=== PATIENT | female | born 2000 | race Caucasian/White ===

== ENCOUNTER → 2024-03-12 10:59 | Outpatient (REF) | payer BC, SELFPAY | LOC: CLAB 10:59 | PROVIDERS: ATTENDING PHYSICIAN Obstetrics & Gynecology Gynecology | DX: Z01.419 Encounter for gynecological examination (general) (routine) without abnormal findings (principal); Z11.3 Encounter for screening for infections with a predominantly sexual mode of transmission | CPT/HCPCS: 87491; 87591; G0123 ==

== ENCOUNTER 2024-07-28 05:27 | Emergency (ER) | payer SELFPAY ==
[2024-07-28 05:30] VITALS: BP 115/80
--- NOTE | 2024-07-28 06:25 | ED.GENMED ---
History of Present Illness
General
Chief Complaint: Blood and Body Fluid Exposure
Time Seen by Provider: 07/28/24 06:03
History of Present Illness
History of Present Illness:
24-year-old female no past medical history presenting status post needle stick injury. 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 Pt states the wound
bled and quickly resolved. Pt denies any complaints. tetanus unknown
Phy Exam
Physical Exam
Physical Exam:
General: Alert, no acute distress
Head: NCAT
Eyes: clear conjunctiva
Neck: supple
Cardiac: regular rate and rhythm, no murmur
Lungs: clear to auscultation bilaterally. No wheezes, rales, or rhonchi. Speaking full unlabored sentences. No respiratory distress.
Extremities: no wound to right thumb with no surrounding erythema, ecchymosis, or edema. no tenderness to palpation
Skin: warm, dry
Course
Orders/Labs/Results
Orders:
Orders
07/28/24 06:24
Pt has had a significant HIV exposure? Routine
HIV Exposure is significant?: No
07/28/24 06:25
Tetanus/Diphth/Acelpertussis [Adacel] 0.5 ml IM .ONCE ONE
07/28/24 06:40
HIV Combo Urgent
Hepatitis B Surface Antibody Urgent
Hepatitis B Surface Antigen Urgent
Hepatitis C Antibody Urgent
Vital Signs
Initial and Last Documented VS:
Initial Vital Signs
Temp Pulse Resp BP Pulse Ox
98.1 F 84 18 115/80 96
07/28/24 05:30 07/28/24 05:30 07/28/24 05:30 07/28/24 05:30 07/28/24 05:30
Last Documented Vital Signs
Temp Pulse Resp BP Pulse Ox
98.1 F 84 18 115/80 96
07/28/24 05:30 07/28/24 05:30 07/28/24 05:30 07/28/24 05:30 07/28/24 05:30
MDM/Problems Addressed
MDM/Problems Addressed:
24yoF presenting after needle stick injury to right thumb with a butterfly needle. Tetanus unknown. Will update tetanus. Offered prophylactic treatment. Pt states pt is low risk pt and declines prophylactic treatment at this time. Pt agreeable to
sending hepatitis/hiv. Recommended to follow up with occupational med/PCP. pt expressed verbal understanding
*Critical Care Note
Total Time (30-74mins, 75-104mins- exclusive of procedures): Not Applicable
ED Attending Note
-
Portions of this chart may have been created with voice recognition software.� Occasional wrong word or��sound alike� substitutions may have occurred due to the inherent limitations of voice recognition software.
Discharge Plan
Departure
Patient Disposition: Home (Routine Discharge)
Date of Disposition: 07/28/24
Time of Disposition: 06:29
Patient with high blood pressure during this ER visit?: No
Discharge Problem:
Needle stick injury of finger
Instructions: Blood or body fluid exposure
Prescriptions:
No Action
ondansetron 4 MG tablet,disintegrating
4 mg PO TIDPRN PRN (Reason: nausea/vomiting) Qty: 14 0RF
Referrals:
Marvin Multani DO [Family Provider] -
Stand Alone Forms: Bl/Fluid Consent/Declination, Blood Body/Fluid Exposure
Activity Restrictions/Additional Instructions:
Follow up with primary care doctor/occupational health
Return to the emergency department for new/worsening concerns
Interventions
Interventions:
*Risk Screen - Suicide Last Done: 07/28/24 05:32
*General Assessment Last Done: 07/28/24 05:41
*Neglect/Abuse Screening Last Done: 07/28/24 05:32
ED- Fall Risk Assessment Last Done: 07/28/24 06:44
*ED COVID-19 Vaccine History Last Done: 07/28/24 05:41
*Nursing Disposition Last Done: 07/28/24 06:44
ED-EENT Assessment Last Done: 07/28/24 05:41
ED-Skin Assessment Last Done: 07/28/24 05:41
Discharge Date and Time
Discharge Date/Time: 07/28/24 06:45
Print Language: CAMBODIAN
[2024-07-28] MEDS: ADACEL 0.5 ML IM (06:40)
[2024-07-28 07:43] LABS: Hepatitis B Surface Antigen Negative (Negative)
[2024-07-28 08:01] LABS: Hepatitis B Surface Antibody Negative; Hepatitis C Antibody Negative (Negative)
[2024-07-28 12:07] LABS: HIV Combo Negative (Negative)
== END 2024-07-28 06:45 | disposition home or self-care (01) ==
LOC: EMR 05:27
PROVIDERS: EMERGENCY PHYSICIAN Emergency Medicine; FAMILY PHYSICIAN Family Medicine
DX: S60.391A Other superficial injuries of right thumb, initial encounter (principal); W46.1XXA Contact with contaminated hypodermic needle, initial encounter; Y99.0 Civilian activity done for income or pay; Z23 Encounter for immunization
CPT/HCPCS: 90471; 99283; 86706; 86803; 87340; 87389; 90715